=== PATIENT | male | born 2005 | race African-American/Black ===

== ENCOUNTER 2023-07-20 19:22 | Emergency (ER) | payer OTHER, SELFPAY ==
--- NOTE | ~2023-07-20 | XR_ITS ---
EXAMINATION: XR chest 1V portable DATE: 07/20/2023 22:56 INDICATION: Chest pain and palpitations TECHNIQUE: AP view of the chest was obtained. COMPARISON: None FINDINGS: The lungs are clear with no focal airspace opacities, pulmonary edema, pleural effusion or pneumothor ax. The cardiomediastinal silhouette is normal. Visualized bones and soft tissues are unremarkable. IMPRESSION: 1. Normal chest radiograph. Reviewed, dictated and finalized at location A. [employer] IMPRESSION: 1. Normal chest radiograph.
[2023-07-20 19:42] VITALS: BP 92/68; PULSE 71; RESP 14; TEMP 36.4; O2SAT 99
--- NOTE | 2023-07-20 19:45 | ECG_ITS ---
Measurements Intervals [place] Rate: 82 P: 72 WV: 146 QRS: 87 QRSD: 92 T: 55 QT: 346 QTc: 405 Interpretive Statements SINUS RHYTHM EARLY REPOLARIZATION [ST ELEVATION WITH NORMALLY INFLECTED T WAVE] BORDERLINE ECG NO PREVIOUS ECG AVAILABLE FOR COMPARISON Electronically Signed On 07-21-2023 16:53:55 [employer] by Johan Pitt M.D.
--- NOTE | 2023-07-20 22:56 | ED.GENADULT ---
HPI - General Adult General Chief complaint: Neck Pain/Injury Stated complaint: neck spasms, racing heart Time Seen by Provider: 07/20/23 22:06 Source: patient Mode of arrival: ambulatory Limitations: no limitations History of Present Illness HPI narrative: this is a 18-year-old male who presents to the ED with chief complaint of heart palpitations and neck spasms beginning earlier this afternoon. Reports that this problem has been going on intermittently the past month or so. He is scheduled to follow-up with his doctor this week. Reports that pain is largely subsided but he still has occasional racing heart beats. denies sore throat, any recent illness, fevers, chills, cough, shortness of breath. No family history of major cardiac events. Related Data Allergies Allergy/AdvReac Type Severity Reaction Status Date / Time No Known Allergies Allergy Verified 07/20/23 22:01 Review of Systems Review of Systems: All systems as dictated in HPI Exam Narrative: GENERAL: Well-appearing, well-nourished, and in no acute distress. HEAD: Normocephalic, atraumatic. EYES: PERRLA and EOMI. ENT: Nares clear, no rhinorrhea or epistaxis. Mucous membranes moist. Oropharynx without tonsillar hypertrophy exudate or other lesions. NECK: Supple. No adenopathy or masses. CHEST: No respiratory distress. Clear to auscultation. No wheezes rales or rhonchi HEART: Regular rate and rhythm. No murmur heard. Normal peripheral pulses. ABDOMEN: Soft, nontender, nondistended, normal active bowel sounds. MSK: Normal range of motion. No edema. SKIN: Warm, dry, no rash. NEURO: Alert and oriented x3. No focal deficits. PSYCH: Normal mood and affect. Course Vital Signs Vital signs: Vital Signs Temperature 97.6 F 07/20/23 19:42 Pulse Rate 71 07/20/23 19:42 Respiratory Rate 14 07/20/23 19:42 Blood Pressure 92/68 L 07/20/23 19:42 Pulse Oximetry 99 07/20/23 19:42 Oxygen Delivery Room Air 07/20/23 19:42 Temperature 97.6 F 07/20/23 19:42 Pulse Rate 70 07/20/23 23:44 Respiratory Rate 15 07/20/23 23:44 Blood Pressure 102/69 07/20/23 23:44 Pulse Oximetry 99 07/20/23 23:44 Oxygen Delivery Room Air 07/20/23 19:42 Medical Decision Making MDM Narrative Medical decision making narrative: This is a 18-year-old male presents chief complaint of heart palpitations and Neck tightness. Ongoing problem for several weeks. Vitals are normal. Exam is benign. No signs of meningismus. EKG shows sinus rhythm with evidence of early repolarization. No acute ischemic findings. Chest x-ray normal. Lab work unremarkable including a negative D-dimer. He is not having any chest pain here. He feels symptoms are resolved. He has another appointment with his doctor this week. Encouraged him to follow up with this. Return precautions given supportive measures discussed. Patient will be discharged in stable condition. Vital Signs Vital Signs: Vital Signs Temperature 97.6 F 07/20/23 19:42 Pulse Rate 71 07/20/23 19:42 Respiratory Rate 14 07/20/23 19:42 Blood Pressure 92/68 L 07/20/23 19:42 Pulse Oximetry 99 07/20/23 19:42 Oxygen Delivery Room Air 07/20/23 19:42 Temperature 97.6 F 07/20/23 19:42 Pulse Rate 70 07/20/23 23:44 Respiratory Rate 15 07/20/23 23:44 Blood Pressure 102/69 07/20/23 23:44 Pulse Oximetry 99 07/20/23 23:44 Oxygen Delivery Room Air 07/20/23 19:42 Lab Data 07/20/23 22:58 07/20/23 22:58 Labs: Lab Results 07/20/23 Range/Units 22:58 WBC 8.9 (4.5-10.0) K/mm3 RBC 4.84 (4.6-6.20) M/mm3 Hgb 14.2 (14.0-18.0) g/dL Hct 44.7 (42.0-52.0) % MCV 92.4 (80-100) fl MCH 29.3 (26-34) pg MCHC 31.8 L (32-36) g/dl RDW 13.2 (11.5-14.5) % Plt Count 237 (150-375) k/mm3 MPV 9.1 (7.4-10.4) fl Immature Gran % (Auto) 0.1 (0-0.5) % Neut % (Auto) 70.9 (45.5-73.1) % Lymph % (Auto) 22.0
[2023-07-20 23:02] LABS: Basophils Percent Auto 0.3 % (0.2-1.2); Eosinophils Percent Auto 0.2 % (0-4.4); Hematocrit 44.7 % (42.0-52.0); Hemoglobin 14.2 g/dL (14.0-18.0); Immature Granulocyte Absolute 0.01 K/mm3 (0.00-0.031); Immature Granulocyte Percent A 0.1 % (0-0.5); Lymphocytes Absolute Auto 1.95 K/mm3 (0.9-3.2); Mean Corpuscular HGB Conc 31.8 g/dl (32-36); Mean Corpuscular Hemoglobin 29.3 pg (26-34); Mean Corpuscular Volume 92.4 fl (80-100); Mean Platelet Volume 9.1 fl (7.4-10.4); Monocytes Absolute Auto 0.6 K/mm3 (0.1-0.6); Monocytes Percent Auto 6.5 % (2.6-8.5); Neutrophils Absolute Auto 6.3 K/mm3 (1.3-6.7); Neutrophils Percent Auto 70.9 % (45.5-73.1); Platelet Count Result 237 k/mm3 (150-375); Red Blood Count 4.84 M/mm3 (4.6-6.20); Red Cell Distribution Width 13.2 % (11.5-14.5); White Blood Count 8.9 K/mm3 (4.5-10.0)
[2023-07-20 23:17] LABS: Alanine Aminotransferase 17 U/L (6-50); Albumin Level 4.6 g/dL (3.5-5.1); Alkaline Phosphatase 66 U/L (38-126); Anion Gap 7 mmol/L (8-16); Aspartate Amino Transferase 32 U/L (17-59); Bilirubin,Total 0.6 mg/dL (0.2-1.3); Blood Urea Nitrogen 14 mg/dL (9-20); Calcium 9.6 mg/dL (8.4-10.2); Carbon Dioxide 28 mmol/L (22-30); Chloride 100 mmol/L (98-107); Estimated CRCL calculation 97 ml/min; Estimated Glomerular Filt Rate > 60; Glucose 94 mg/dL (65-110); Potassium 4.4 mmol/L (3.4-5.0); Sodium 135 mmol/L (137-145)
[2023-07-20 23:20] LABS: D Dimer < 0.27 ug/mL (<0.48)
[2023-07-20 23:44] VITALS: BP 102/69; PULSE 70; RESP 15; O2SAT 99
== END 2023-07-20 23:47 | disposition home or self-care (01) ==
PROVIDERS: Emergency Provider Physician Assistant
DX: R00.2 Palpitations (principal)
CPT/HCPCS: 36415; 71045; 80053; 85025; 85380; 93005; 99283